=== PATIENT | female | born 1950 | race Caucasian/White ===

== ENCOUNTER 2024-09-12 14:44 | Inpatient (IN) | payer MEDICARE ==
[2024-09-12] MEDS: Acetaminophen/HYDROcodone 325-10 MG Tab PO ONE (16:59)
[2024-09-12] MEDS ORDERED: Naloxone 0.4 MG/ML SDV IVPUSH PRN (18:24)
[2024-09-12] MEDS ORDERED: Ondansetron 4 MG/2 ML SDV IV PRN (18:24)
[2024-09-12 18:40] LABS: PLATELET COUNT,PLT 255.0 K/uL (130-375); RED BLOOD CELL COUNT 4.08 M/uL (3.77-5.24); WHITE BLOOD CELL COUNT,WBC 14.8 K/uL (3.2-11.0)
[2024-09-12 19:01] LABS: A/G RATIO 1.2 (1.2-2.2); ALANINE AMINOTRANSFERASE,ALT 25 U/L (12-78); ASPARTATE AMNIOTRANSFERASE,AST 22 U/L (15-37); BILIRUBIN TOTAL 0.7 mg/dL (0.2-1.0); BLOOD UREA NITROGEN,BUN 14 mg/dL (7-18); CARBON DIOXIDE,CO2 24 mmol/L (21-32); CHLORIDE,CL 97 mmol/L (100-108); CREATININE 0.7 mg/dL (0.6-1.0); EST CRCL DRUG DOSING (CG) 56.56 mL/min; ESTIMATED GFR 90 mL/min (>60); GLUCOSE RANDOM 138 mg/dL (74-106); POTASSIUM,K 4.4 mmol/L (3.6-5.2); PROTEIN TOTAL,TP 7.3 g/dL (6.4-8.2); SODIUM,NA 136 mmol/L (140-148)
[2024-09-12] MEDS: Heparin Sodium 5,000 Units/ML Vial SUBCUT SCH (19:56)
[2024-09-13] MEDS ORDERED: Propofol 200 MG/20 ML SDV ONE ×2 (15:59→16:00)
[2024-09-13] MEDS ORDERED: fentaNYL 100 MCG/2 ML SDV ONE (15:59)
[2024-09-13] MEDS ORDERED: Midazolam 1 MG/ML 2 ML SDV ONE (15:59)
[2024-09-13] MEDS ORDERED: ePHEDrine 50 MG/ML SDV ONE (16:40)
[2024-09-13] MEDS ORDERED: Lactated Ringers 1,000 ML ONE (16:45)
[2024-09-14] MEDS ORDERED: Magnesium Hydroxide 400 MG/5 ML Susp 30 ML Cup PO PRN (17:45)
[2024-09-15] MEDS: Sodium Chloride 0.9% 10 ML Syringe FLUSH PRN (17:42)
[2024-09-15] MEDS: Ketorolac 15 MG/ML SDV IVPUSH SCH (21:23)
[2024-09-16 06:07] LABS: BASOPHILS ABSOLUTE AUTO 0.03 K/uL (0.00-0.10); BASOPHILS PERCENT AUTO 0.4 % (0.1-1.3); EOSINOPHILS ABSOLUTE AUTO 0.24 K/uL (0.00-0.40); EOSINOPHILS PERCENT AUTO 3.2 % (0.0-5.4); IMMATURE GRAN ABSOLUTE AUTO 0.04 K/uL (0.00-0.23); IMMATURE GRAN PERCENT AUTO 0.5 % (0.0-0.7); LYMPHOCYTES ABSOLUTE AUTO 1.19 K/uL (0.8-3.3); LYMPHOCYTES PERCENT AUTO 15.8 % (11.4-47.7); MONOCYTES ABSOLUTE AUTO 0.56 K/uL (0.20-0.90); MONOCYTES PERCENT AUTO 7.5 % (3.3-12.6); NEUTROPHILS ABSOLUTE AUTO 5.45 K/uL (1.0-7.6); NEUTROPHILS PERCENT AUTO 72.6 % (40.0-78.1); PLATELET COUNT,PLT 188 K/uL (130-375); RED BLOOD CELL COUNT 2.45 M/uL (3.77-5.24); WHITE BLOOD CELL COUNT,WBC 7.5 K/uL (3.2-11.0)
[2024-09-16 06:32] LABS: A/G RATIO 0.8 (1.2-2.2); ALANINE AMINOTRANSFERASE,ALT 24 U/L (12-78); ASPARTATE AMNIOTRANSFERASE,AST 27 U/L (15-37); BILIRUBIN TOTAL 0.5 mg/dL (0.2-1.0); BLOOD UREA NITROGEN,BUN 16 mg/dL (7-18); CARBON DIOXIDE,CO2 27 mmol/L (21-32); CHLORIDE,CL 105 mmol/L (100-108); CREATININE 0.5 mg/dL (0.6-1.0); EST CRCL DRUG DOSING (CG) 79.18 mL/min; ESTIMATED GFR 97 mL/min (>60); GLUCOSE RANDOM 99 mg/dL (74-106); POTASSIUM,K 3.7 mmol/L (3.6-5.2); PROTEIN TOTAL,TP 5.5 g/dL (6.4-8.2); SODIUM,NA 138 mmol/L (140-148)
== END 2024-09-18 10:54 | disposition home or self-care (01) | DRG 481 ==
LOC: JP.ED 14:44 → JP.MS 16:58
PROVIDERS: ADMIT Hospitalist; ATTEND Hospitalist
PROC: 0QS636Z Reposition Right Upper Femur with Intramedullary Internal Fixation Device, Percutaneous Approach (ICD-10-PCS; principal; 2024-09-13 16:30)
PROC: 30233N1 Transfusion of Nonautologous Red Blood Cells into Peripheral Vein, Percutaneous Approach (ICD-10-PCS; 2024-09-16)
DX: S72.141A Displaced intertrochanteric fracture of right femur, initial encounter for closed fracture (principal); D62 Acute posthemorrhagic anemia; W10.9XXA Fall (on) (from) unspecified stairs and steps, initial encounter; E03.9 Hypothyroidism, unspecified; G25.81 Restless legs syndrome; K44.9 Diaphragmatic hernia without obstruction or gangrene; W01.0XXA Fall on same level from slipping, tripping and stumbling without subsequent striking against object, initial encounter; M85.80 Other specified disorders of bone density and structure, unspecified site; Z85.828 Personal history of other malignant neoplasm of skin; Z98.49 Cataract extraction status, unspecified eye; Z90.710 Acquired absence of both cervix and uterus; Z98.890 Other specified postprocedural states; Z88.2 Allergy status to sulfonamides; Z79.899 Other long term (current) drug therapy; Z79.890 Hormone replacement therapy; Y92.009 Unspecified place in unspecified non-institutional (private) residence as the place of occurrence of the external cause
CPT/HCPCS: 01230-QZ; 36415; 36430; 73502-26-RT; 73502-RT; 76000; 80053; 83735; 85018; 85025; 85027; 86850; 86900; 86901; 86920; 86922; 93005; 96374; 97161-GP; 97530-GP; 99222; 99231; 99238; 99284; 99285-25; A9270-GY; C1713; C1776; J0665; J0690; J1171; J1644; J1885; J2250; J2704; J3010; J7030; J7120; P9016